=== PATIENT | female | born 1945 | race Caucasian/White ===

== ENCOUNTER 2017-10-04 00:33 | Observation (INO) ==
--- NOTE | 2017-10-04 00:47 | Emergency Department Note ---
Disposition Clinical Impression: UTI (urinary tract infection), CHF (congestive heart failure), Altered mental status Disposition: Admitted As Inpatient Condition: Good Altered Mental Status HPI - General Chief Complaint: ED Altered Mental Status Stated Complaint: Altered mental status, current UTI on Bactrim Time Seen by Provider: 10/04/17 00:35 Source: family Mode of arrival: EMS Limitations: altered mental status Nursing Notes Reviewed: Yes Vital Signs Reviewed: Yes - History of Present Illness HPI Narrative: PT has a known UTI and was sent here for worsening metal status. Family did not accompany the patient but over the phone they say she is more confused. MD complaint: altered mental status Onset (ago): day(s) (a few days) Pain Severity: none Pain Scale: 0 Associated symptoms: Reports: denies other symptoms - Related Data Home Medications Medication Instructions Recorded Confirmed Furosemide [Lasix] 60 mg PO BID 04/06/15 10/04/17 Levothyroxine [Synthroid] 175 mcg PO QAM 04/06/15 10/04/17 Metoprolol [Lopressor] 25 mg PO QAM 04/06/15 10/04/17 SitaGLIPtin [Januvia] 100 mg PO QPM 04/06/15 10/04/17 Oxygen 1 each IH AD 04/09/15 11/20/15 Albuterol Neb [Proventil Neb] 2.5 mg IH TID PRN 05/08/15 10/04/17 Potassium Chloride 20 meq PO DAILY PRN 05/08/15 10/04/17 Simvastatin [Zocor] 20 mg PO QPM 05/08/15 10/04/17 Acetaminophen [Arthritis Pain 650 mg PO Q4H PRN 10/04/17 10/04/17 Relief] Allopurinol [Zyloprim 100 MG] 100 mg PO DAILY 10/04/17 10/04/17 Aspirin [Lo-Dose Aspirin EC] 81 mg PO QAM 10/04/17 10/04/17 Benzocaine [Anbesol] 12 ml MM QID PRN 10/04/17 10/04/17 Benzonatate [Tessalon] 100 mg PO TID 10/04/17 10/04/17 Bisacodyl [Dulcolax] 10 mg RC DAILY PRN 10/04/17 10/04/17 Buspirone HCl [Buspar] 7.5 mg PO BID PRN 10/04/17 10/04/17 Chlorpheniramine/Dextromethorp 1 each PO Q4H PRN 10/04/17 10/04/17 [Coricidin Hbp Cough & Cold Tab] Citalopram [CeleXA] 10 mg PO DAILY 10/04/17 10/04/17 Diclofenac Sodium [Voltaren] 100 gm TP QID PRN 10/04/17 10/04/17 Famotidine [Pepcid] 20 mg PO BID 10/04/17 10/04/17 HYDROcodone/Acet 5/325 mg [[place] 1 tab PO Q6H PRN 10/04/17 10/04/17 5-325 mg] Lactobacillus Combination No.8 1 cap PO BID 10/04/17 10/04/17 [Adult Probiotic] Loperamide HCl [Imodium A-D] 2 mg PO PRN PRN 10/04/17 10/04/17 Multivitamin [Multivitamins] 1 each PO QAM 10/04/17 10/04/17 Ondansetron HCl [Zofran] 4 mg PO Q6H PRN 10/04/17 10/04/17 Phenylephrine HCl/Prometh HCl 5 ml PO Q6H PRN 10/04/17 10/04/17 [Promethazine Vc Syrup] Polyethylene Glycol 3350 [MiraLAX] 17 gm PO DAILY 10/04/17 10/04/17 Polyvinyl Alcohol [Artificial 15 ml OP Q4H PRN 10/04/17 10/04/17 Tears] Spironolactone [Aldactone] 25 mg PO QMWF 10/04/17 10/04/17 Sulfamethoxazole/Trimeth DS 1 each PO BID 10/04/17 10/04/17 [Bactrim DS] Warfarin [Coumadin] 2 mg PO DAILY 10/04/17 10/04/17 Previous Rx's Medication Instructions Recorded Albuterol Sulfate [Albuterol 1 puff IH Q4HR PRN #2 inhaler 09/06/15 Inhaler] Budesonide/Formoterol 160/4.5 1 puff IH BIDR #2 hfa.aer.ad 09/06/15 [Symbicort 160/4.5] Allergies Allergy/AdvReac Type Severity Reaction Status Date / Time atorvastatin [From Lipitor] Allergy Muscle Pain Verified 10/04/17 01:36 fentanyl Allergy Hallucinati Verified 10/04/17 01:36 ng steroids Allergy Hallucinati Uncoded 10/04/17 01:36 ng All systems ED: reviewed and negative except as stated. Review of Systems: As Per HPI Constitutional: Denies: fever, chills, weakness, weight change Eyes: Denies: eye pain, eye discharge, vision change ENT ED: Denies: ear pain, throat pain, dental pain, hearing loss, epistaxis, congestion, dysphagia Cardiovascular: Denies: chest pain, palpitations, dyspnea on exertion, edema, syncope Respiratory: Denies: cough, dyspnea, wheezes, hemoptysis, stridor Gastrointestinal: Denies: abdominal pain, nausea, vomiting, diarrhea, constipation, hematemesis, melena, hematochezia Genitourinary: Denies: dysuria, frequency, hematuria, discharge Musculoskeletal: Denies: back pain, neck pain, arthralgia, myalgia Integumentary: Denies: rash, abrasion, lesions Neurological: Denies: headache, weakness, numbness, paresthesias, confusion, abnormal gait, vertigo Psychiatric: Denies: anxiety, depression, suicidal thoughts, homicidal thoughts , auditory hallucinations, visual hallucinations Endocrine: Denies: fatigue Hematological/Lymphatic: Denies: easy bleeding, easy bruising Allergic/Immunologic: Denies: facial swelling, urticaria Past Medical History - Past Medical History Attestation: Yes The following information was validated with the patient. Source: old records reviewed Medical history: Reports: arthritis, CHF, COPD, coronary artery disease, diabetes, hypertension, myocardial infarction Surgical history: Reports: breast surgery, cholecystectomy, pacemaker/AICD Psychiatric history: Reports: anxiety [employer] history: Reports: other - Social History Smoking Status: Former smoker Smokeless Tobacco Status: No Alcohol use: Reports: none Drug use: Reports: none Physical Exam - General Limitations: no limitations General appearance: alert, in no apparent distress - Head Head exam: atraumatic, normocephalic, normal inspection - Eye Eye exam: Present: normal appearance, PERRL, EOMI - ENT ENT exam: normal exam, normal oropharynx, mucous membranes moist - Neck Neck exam: Present: normal inspection, full ROM, trachea midline - Chest Chest inspection: Present: normal inspection, symmetric chest wall rise - Respiratory Respiratory exam: Present: normal lung sounds bilaterally - Cardiovascular Cardiovascular exam: Present: regular rate, normal rhythm, normal heart sounds - Abdominal Exam Abdominal exam: Present: soft, Non-Tender, normal bowel sounds - Extremities Exam Extremities exam: Present: normal inspection - Back Exam Back exam: Present: normal inspection - Neurological Exam Neurological exam: Present: alert, oriented X3 - Psychiatric Psychiatric exam: Present: normal affect, normal mood - Skin Skin exam: Present: warm, dry, intact Course Vital Signs Temperature 97.4 F L 10/04/17 00:35 Pulse Rate 62 10/04/17 00:35 Respiratory Rate 18 10/04/17 00:35 Blood Pressure 155/47 10/04/17 00:35 O2 Sat by Pulse Oximetry 96 10/04/17 00:35 Temperature 98.3 F 10/04/17 07:06 Pulse Rate 62 10/04/17 07:06 Respiratory Rate 20 10/04/17 07:06 Blood Pressure 106/37 10/04/17 07:06 O2 Sat by Pulse Oximetry 95 10/04/17 07:06 Oxygen Delivery Oxygen Delivery Nasal Cannula Altered Mental Status - Lab Data Lab results reviewed: Yes I reviewed the patient's lab results. Result diagrams: 10/04/17 01:13 10/04/17 01:13 Lab Results 10/04/17 10/04/17 10/04/17 Range/Units 01:05 01:13 01:13 WBC 3.8 L D (4.3-11.1) K/mcL RBC 4.08 (3.82-4.97) M/mcL Hgb 13.1 (11.5-15.4) g/dL Hct 40.6 (35.3-44.9) % MCV 99.5 (83.0-100.0) fL MCH 32.1 (28.0-33.3) pg MCHC 32.3 (31.6-35.5) g/dL RDW 17.7 H (11.5-14.5) % Plt Count 97 L (140-400) K/mcL MPV 10.7 (9.4-12.4) fL Immature Gran % 0.5 (0-4) % Seg Neutrophils % 73.7 % Lymphocytes % 11.6 % Monocytes % 11.6 % Eosinophils % 2.1 % Basophils % 0.5 % Neutrophils # 2.8 (1.6-8.9) K/mcL Lymphocytes # 0.4 L (0.6-4.6) K/mcL Monocytes # 0.4 (0.0-1.3) K/mcL Eosinophils # 0.1 (0.0-0.6) K/mcL Basophils # 0.0 (0.0-0.2) K/mcL PT (9.4-12.1) Seconds INR APTT (26.0-36.0) Seconds Sodium 139 (136-145) mEq/L Potassium 3.7 (3.5-5.1) mEq/L Chloride 99 (98-107) mEq/L Carbon Dioxide 32 H (23-29) mEq/L BUN 21 (8-23) mg/dL Creatinine 1.29 H (0.60-1.20) mg/dL Est GFR ( Amer) 49 L (> 60) Est GFR (Non-Af Amer) 41 L (> 60) BUN/Creatinine Ratio 16 (6-26) Glucose 127 H (70-105) mg/dL Calculated Osmolality 293 (280-300) Lactic Acid (0.5-2.2) mmol/L Calcium 9.1 (8.6-10.3) mg/dL Total Bilirubin 1.1 H (0.3-1.0) mg/dL AST 30 (13-39) Units/L ALT 12 (7-52) Units/L Alkaline Phosphatase 81 (34-104) Units/L Troponin I (< 0.04) ng/mL B-Natriuretic Peptide (Less than 100) pg/mL Serum Total Protein 6.0 L (6.4-8.9) g/dL Albumin 3.5 (3.5-5.7) g/dL Globulin 2.5 (2.4-3.5) g/dL Albumin/Globulin Ratio 1.4 (1.1-2.2) Urine Color Dark Yellow (Yellow) Urine Clarity Cloudy A (Clear) Urine pH 5.5 (5.0-8.0) pH Units Ur Specific [place] 1.025 (1.010-1.025) Urine Protein Negative (Neg-Trace) mg/dL Urine Glucose (UA) Normal (Normal) mg/dL Urine Ketones Negative (Negative) mg/dL Urine Blood Large H (Negative) Urine Nitrite Negative (Negative) Urine Bilirubin Small H (Negative) Urine Urobilinogen Normal (Normal) mg/dL Ur Leukocyte Esterase Negative (Negative) Urine Microscopic RBC 30-50 H (0-3) per hpf Urine Microscopic WBC 0-3 (0-3) per hpf Ur Squamous Epith Cells Few (None-Few) per lpf Uric Acid Crystals Present Amorphous Sediment Moderate H (Few) Urine Bacteria Many H (None-Few) per hpf Hyaline Casts Moderate H (None-Few) per lpf Granular Casts Few H (None Seen) per lpf Urine Mucus Few (Few) Ur Culture Indicated? NO (NO) Urine Opiates Screen (Rcjfni=445) ng/mL Ur Oxycodone Screen (Cutoff= 100) ng/mL Ur Barbiturates Screen (Ltfzpq=117) ng/mL Ur Phencyclidine Scrn (Cutoff=25) ng/mL Ur Amphetamines Screen (Ygtmxm=9466) ng/mL U Benzodiazepines Scrn (Guniey=675) ng/mL Urine Cocaine Screen (Cutoff= 300) ng/mL U Marijuana (THC) Screen (Cutoff = 50) ng/mL 10/04/17 10/04/17 10/04/17 Range/Units 01:13 01:13 01:13 WBC (4.3-11.1) K/mcL RBC (3.82-4.97) M/mcL Hgb (11.5-15.4) g/dL Hct (35.3-44.9) % MCV (83.0-100.0) fL MCH (28.0-33.3) pg MCHC (31.6-35.5) g/dL RDW (11.5-14.5) % Plt Count (140-400) K/mcL MPV (9.4-12.4) fL Immature Gran % (0-4) % Seg Neutrophils % % Lymphocytes % % Monocytes % % Eosinophils % % Basophils % % Neutrophils # (1.6-8.9) K/mcL Lymphocytes # (0.6-4.6) K/mcL Monocytes # (0.0-1.3) K/mcL Eosinophils # (0.0-0.6) K/mcL Basophils # (0.0-0.2) K/mcL PT 42.2 H (9.4-12.1) Seconds INR 3.8 APTT 41.6 H (26.0-36.0) Seconds Sodium (136-145) mEq/L Potassium (3.5-5.1) mEq/L Chloride (98-107) mEq/L Carbon Dioxide (23-29) mEq/L BUN (8-23) mg/dL Creatinine (0.60-1.20) mg/dL Est GFR ( Amer) (> 60) Est GFR (Non-Af Amer) (> 60) BUN/Creatinine Ratio (6-26) Glucose (70-105) mg/dL Calculated Osmolality (280-300) Lactic Acid 1.0 (0.5-2.2) mmol/L Calcium (8.6-10.3) mg/dL Total Bilirubin (0.3-1.0) mg/dL AST (13-39) Units/L ALT (7-52) Units/L Alkaline Phosphatase (34-104) Units/L Troponin I 0.05 H* (< 0.04) ng/mL B-Natriuretic Peptide (Less than 100) pg/mL Serum Total Protein (6.4-8.9) g/dL Albumin (3.5-5.7) g/dL Globulin (2.4-3.5) g/dL Albumin/Globulin Ratio (1.1-2.2) Urine Color (Yellow) Urine Clarity (Clear) Urine pH (5.0-8.0) pH Units Ur Specific [place] (1.010-1.025) Urine Protein (Neg-Trace) mg/dL Urine Glucose (UA) (Normal) mg/dL Urine Ketones (Negative) mg/dL Urine Blood (Negative) Urine Nitrite (Negative) Urine Bilirubin (Negative) Urine Urobilinogen (Normal) mg/dL Ur Leukocyte Esterase (Negative) Urine Microscopic RBC (0-3) per hpf Urine Microscopic WBC (0-3) per hpf Ur Squamous Epith Cells (None-Few) per lpf Uric Acid Crystals Amorphous Sediment (Few) Urine Bacteria (None-Few) per hpf Hyaline Casts (None-Few) per lpf Granular Casts (None Seen) per lpf Urine Mucus (Few) Ur Culture Indicated? (NO) Urine Opiates Screen (Rtlelv=712) ng/mL Ur Oxycodone Screen (Cutoff= 100) ng/mL Ur Barbiturates Screen (Ewabiy=053) ng/mL Ur Phencyclidine Scrn (Cutoff=25) ng/mL Ur Amphetamines Screen (Focppq=4131) ng/mL U Benzodiazepines Scrn (Blbcvt=404) ng/mL Urine Cocaine Screen (Cutoff= 300) ng/mL U Marijuana (THC) Screen (Cutoff = 50) ng/mL 10/04/17 10/04/17 10/04/17 Range/Units 01:13 01:32 03:00 WBC (4.3-11.1) K/mcL RBC (3.82-4.97) M/mcL Hgb (11.5-15.4) g/dL Hct (35.3-44.9) % MCV (83.0-100.0) fL MCH (28.0-33.3) pg MCHC (31.6-35.5) g/dL RDW (11.5-14.5) % Plt Count (140-400) K/mcL MPV (9.4-12.4) fL Immature Gran % (0-4) % Seg Neutrophils % % Lymphocytes % % Monocytes % % Eosinophils % % Basophils % % Neutrophils # (1.6-8.9) K/mcL Lymphocytes # (0.6-4.6) K/mcL Monocytes # (0.0-1.3) K/mcL Eosinophils # (0.0-0.6) K/mcL Basophils # (0.0-0.2) K/mcL PT (9.4-12.1) Seconds INR APTT (26.0-36.0) Seconds Sodium (136-145) mEq/L Potassium (3.5-5.1) mEq/L Chloride (98-107) mEq/L Carbon Dioxide (23-29) mEq/L BUN (8-23) mg/dL Creatinine (0.60-1.20) mg/dL Est GFR ( Amer) (> 60) Est GFR (Non-Af Amer) (> 60) BUN/Creatinine Ratio (6-26) Glucose (70-105) mg/dL Calculated Osmolality (280-300) Lactic Acid (0.5-2.2) mmol/L Calcium (8.6-10.3) mg/dL Total Bilirubin (0.3-1.0) mg/dL AST (13-39) Units/L ALT (7-52) Units/L Alkaline Phosphatase (34-104) Units/L Troponin I 0.04 H* (< 0.04) ng/mL B-Natriuretic Peptide 290 H (Less than 100) pg/mL Serum Total Protein (6.4-8.9) g/dL Albumin (3.5-5.7) g/dL Globulin (2.4-3.5) g/dL Albumin/Globulin Ratio (1.1-2.2) Urine Color (Yellow) Urine Clarity (Clear) Urine pH (5.0-8.0) pH Units Ur Specific [place] (1.010-1.025) Urine Protein (Neg-Trace) mg/dL Urine Glucose (UA) (Normal) mg/dL Urine Ketones (Negative) mg/dL Urine Blood (Negative) Urine Nitrite (Negative) Urine Bilirubin (Negative) Urine Urobilinogen (Normal) mg/dL Ur Leukocyte Esterase (Negative) Urine Microscopic RBC (0-3) per hpf Urine Microscopic WBC (0-3) per hpf Ur Squamous Epith Cells (None-Few) per lpf Uric Acid Crystals Amorphous Sediment (Few) Urine Bacteria (None-Few) per hpf Hyaline Casts (None-Few) per lpf Granular Casts (None Seen) per lpf Urine Mucus (Few) Ur Culture Indicated? (NO) Urine Opiates Screen Negative ([place]=379) ng/mL Ur Oxycodone Screen Negative (Cutoff= 100) ng/mL Ur Barbiturates Screen Negative (Yxceaf=082) ng/mL Ur Phencyclidine Scrn Negative (Cutoff=25) ng/mL Ur Amphetamines Screen Negative (Kirjrx=8226) ng/mL U Benzodiazepines Scrn Negative (Xqafae=491) ng/mL Urine Cocaine Screen Negative (Cutoff= 300) ng/mL U Marijuana (THC) Screen Negative (Cutoff = 50) ng/mL - Radiology Data Radiology results reviewed: Yes I reviewed the patient's radiology results. - EKG Data EKG attestation: Yes I reviewed and interpreted this EKG. EKG results narrative: EKG shows an electronically paced rhythm. Rate of 65bpm. axis -77 QRS duration 189ms. TPA Checklist - LKW: 3-4.5 hrs Add. Warnings/Precautions Patient/family understanding: The patient/family members have been counseled and understood the risk, benefit , and alternatives of treatment.
[2017-10-04] MEDS ORDERED: 0.9 % Sodium Chloride 1,000 ML IVC SCH ×2 (01:00→05:13)
[2017-10-04 01:30] LABS: INR 3.8; Prothrombin Time 42.2 Seconds (9.4-12.1)
[2017-10-04 01:31] LABS: Basophils % 0.5 %; Eosinophils # 0.1 K/mcL (0.0-0.6); Eosinophils % 2.1 %; Hematocrit 40.6 % (35.3-44.9); Hemoglobin 13.1 g/dL (11.5-15.4); Immature Granulocytes % 0.5 % (0-4); Lymphocytes # 0.4 K/mcL (0.6-4.6); Lymphocytes % 11.6 %; Mean Corpuscular HGB Conc 32.3 g/dL (31.6-35.5); Mean Corpuscular Hemoglobin 32.1 pg (28.0-33.3); Mean Corpuscular Volume 99.5 fL (83.0-100.0); Mean Platelet Volume 10.7 fL (9.4-12.4); Monocytes # 0.4 K/mcL (0.0-1.3); Monocytes % 11.6 %; Neutrophils # 2.8 K/mcL (1.6-8.9); Red Blood Count 4.08 M/mcL (3.82-4.97); Red Cell Distribution Width 17.7 % (11.5-14.5); Segmented Neutrophils % 73.7 %
[2017-10-04 01:33] LABS: Activated Partial Thrombo Time 41.6 Seconds (26.0-36.0)
[2017-10-04 01:35] LABS: Platelet Count 97 K/mcL (140-400)
[2017-10-04 01:40] LABS: Bilirubin,Urine Small (Negative); Blood,Urine Large (Negative); Clarity,Urine Cloudy (Clear); Color,Urine Dark Yellow (Yellow); Glucose,Urine (UA) Normal (Normal); Ketones,Urine Negative (Negative); Leukocyte Esterase,Urine Negative (Negative); Nitrite,Urine Negative (Negative); PH,Urine 5.5 pH Units (5.0-8.0); Protein,Urine Negative (Neg-Trace); Specific Gravity,Urine 1.025 (1.010-1.025); Urobilinogen,Urine Normal (Normal)
[2017-10-04 01:43] LABS: Albumin 3.5 g/dL (3.5-5.7); Albumin/Globulin Ratio 1.4 (1.1-2.2); Bilirubin,Total 1.1 mg/dL (0.3-1.0); Calcium 9.1 mg/dL (8.6-10.3); Globulin 2.5 g/dL (2.4-3.5); Potassium 3.7 mEq/L (3.5-5.1)
[2017-10-04 01:55] LABS: Bacteria,Urine Many per hpf (None-Few); Hyaline Casts,Urine Moderate per lpf (None-Few); Squamous Epithelial Cell,Urine Few per lpf (None-Few)
[2017-10-04 01:56] LABS: Granular Casts,Urine Few per lpf (None Seen); RBC,Urine 30-50 per hpf (0-3); WBC,Urine 0-3 per hpf (0-3)
[2017-10-04 01:57] LABS: Mucus,Urine Few (Few); Uric Acid Crystals,Urine Present
[2017-10-04 01:58] LABS: Amorphous Sediment,Urine Moderate (Few)
[2017-10-04 02:00] LABS: Amphetamine Screen,Urine Negative ng/mL (Cutoff=1000); Barbiturate Screen,Urine Negative ng/mL (Cutoff=200); Benzodiazepines Screen,Urine Negative ng/mL (Cutoff=200); Cannabinoid Screen,Urine Negative ng/mL (Cutoff = 50); Cocaine Screen,Urine Negative ng/mL (Cutoff= 300); Opiate Screen,Urine Negative ng/mL (Cutoff=300); Phencyclidine Screen,Urine Negative ng/mL (Cutoff=25)
[2017-10-04] MEDS ORDERED: CEFTRIAXONE IVPB ONE (02:00)
[2017-10-04] MEDS ORDERED: D5 IVPB ONE (02:00)
[2017-10-04] MEDS ORDERED: WATER IVPB ONE (02:00)
[2017-10-04] MEDS ORDERED: Aspirin 81 MG TAB.CHEW PO STA (03:38)
[2017-10-04] MEDS ORDERED: Furosemide 40 MG/4 ML VIAL IVP ONE (03:38)
[2017-10-04] MEDS ORDERED: Albuterol 2.5 MG/3 ML NEBULIZER IH PRN (05:13)
[2017-10-04] MEDS ORDERED: DEXTROMETHORPHAN PO PRN (05:13)
[2017-10-04] MEDS ORDERED: Bisacodyl 10 MG RECTAL SUPPOSITORY RC PRN (05:13)
[2017-10-04] MEDS ORDERED: Artificial Tears SOLN 15 ML BOTTLE OP PRN (05:13)
[2017-10-04] MEDS ORDERED: BENZOCAINE TP PRN (05:13)
[2017-10-04] MEDS ORDERED: Acetaminophen 325 MG TABLET PO PRN (05:13)
[2017-10-04] MEDS ORDERED: PROMETHAZINE VC PO PRN (05:13)
[2017-10-04] MEDS ORDERED: (Diclofenac Sodium [Voltaren] 100 GM) TP PRN (05:13)
[2017-10-04] MEDS ORDERED: Naloxone 0.4 MG/ML INJ IVP PRN (05:13)
[2017-10-04] MEDS ORDERED: NON-FORMULARY MEDICATION 1 EACH EACH (Oxygen [Oxygen] 1 EACH) IH SCH (05:13)
[2017-10-04] MEDS ORDERED: GUAIFENESIN PO PRN (05:13)
[2017-10-04] MEDS: Benzonatate 100 MG CAPSULE PO SCH ×2 (08:44→14:57)
[2017-10-04] MEDS ORDERED: Furosemide 20 MG TABLET PO SCH (09:00)
[2017-10-04] MEDS ORDERED: Aspirin Enteric Coated 81 MG Tablet PO SCH (09:00)
[2017-10-04] MEDS ORDERED: Famotidine 20 MG TABLET PO SCH (09:00)
[2017-10-04] MEDS ORDERED: Sulfamethoxazole/Trimeth DS 1 EACH TABLET PO SCH (09:00)
[2017-10-04] MEDS ORDERED: Budesonide/Formoterol 160/4.5 1 PUFF INH IH SCH (10:00)
[2017-10-04 12:01] VITALS: BP 136/66
--- NOTE | 2017-10-04 14:29 | Internal Med History&Physical ---
Date of Encounter: 10/04/17 Time of Encounter: 13:45 Assessment and Plan (1) Altered mental status Current visit: Yes Status: Acute Now resolved. Etiology not certain. Qualifiers: Altered mental status type: unspecified Qualified Code(s): R41.82 - Altered mental status, unspecified (2) Congestive heart failure Current visit: Yes Status: Chronic Continue Lasix and Aldactone. Will change Lopressor to Toprol-XL for 24-hour coverage. Will add Imdur. Qualifiers: Heart failure type: diastolic Heart failure chronicity: chronic Qualified Code(s): I50.32 - Chronic diastolic (congestive) heart failure (3) Atrial fibrillation Current visit: No Status: Chronic She reports she has difficult maintaining therapeutic INR. INR record reviewed in lab archives. Will discontinue Coumadin and change to Xarelto. Qualifiers: Atrial fibrillation type: chronic Qualified Code(s): I48.2 - Chronic atrial fibrillation (4) Hypothyroidism Current visit: No Status: Chronic TSH was normal at 3.921 on 05/27/2017. Continue present dose Synthroid. Qualifiers: Hypothyroidism type: acquired Qualified Code(s): E03.9 - Hypothyroidism, unspecified (5) Acute kidney injury Current visit: No Status: Acute Creatinine was 0.90 on 09/28/2017. This can be monitored at the SNF. (6) CKD (chronic kidney disease) stage 3, GFR 30-59 ml/min Current visit: No Status: Chronic As above Internal Medicine - H&P: HPI Chief complaint: Confusion Admitted From: Emergency Dept Plans for Post Hospital Care: Home History of present illness: Ms. De is a 72 year old female who was sent to the emergency room from [facility] after it was felt she was more confused. She was evaluated in emergency room and felt to have UTI and heart failure. She was admitted to [facility] floor for ongoing care needs. She states she feels significantly improved now. Her daughter agrees she is improved but perhaps not quite back to baseline. Her neurologic history is negative for large distention strokes or seizures. She has been diagnosed with multiple UTIs in the past. history is pertinent otherwise for chronic kidney disease. 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 She was found to have hematuria in the emergency room but 0-3 WBCs and negative leukocyte esterase. Past Med Surg Social Fam HX - Past Medical History Medical history: arthritis, CHF, COPD, coronary artery disease, diabetes, hypertension, myocardial infarction Psychiatric history: anxiety - Past Surgical History Surgical History: breast surgery, cholecystectomy, pacemaker/AICD - Social History Smoking Status: Former smoker Smokeless Tobacco Status: No Alcohol use: none Drug use: none - Family History Brother Adopted: No Family Member Ethnicity: Non- Living Status: Hx Family Cardiac Disorders: Yes Hx Family Respiratory Disorders: No Hx Family Cancer: Yes (liver) Hx Family GI Disorders: Yes (stomach lined with rubber tubing) Hx Family Endocrine Disorder: No Hx Family Neuromuscular Disorders: No Hx Family Neurologic Disorders: No Hx Family HEENT Disorders: No Hx Family Autoimmune Disorders: No Mother Adopted: No Family Member Ethnicity: Non- Living Status: Hx Family Cardiac Disorders: Yes Hx Family Respiratory Disorders: No Hx Family Cancer: No Hx Family GI Disorders: No Hx Family Endocrine Disorder: No Hx Family Neuromuscular Disorders: No Hx Family Neurologic Disorders: No Hx Family HEENT Disorders: No Hx Family Autoimmune Disorders: No Father Adopted: No Family Member Ethnicity: Non- Living Status: Hx Family Cardiac Disorders: No Hx Family Respiratory Disorders: No Hx Family Cancer: Yes Hx Family GI Disorders: No Hx Family Endocrine Disorder: No Hx Family Neuromuscular Disorders: No Hx Family Neurologic Disorders: No Hx Family HEENT Disorders: No Hx Family Autoimmune Disorders: No Sister Adopted: No Family Member Ethnicity: Non- Living Status: Still Living Hx Family Cardiac Disorders: No Hx Family Respiratory Disorders: No Hx Family Cancer: Yes (Stomach and pancreas) Hx Family GI Disorders: No Hx Family Endocrine Disorder: No Hx Family Neuromuscular Disorders: No Hx Family Neurologic Disorders: No Hx Family HEENT Disorders: No Hx Family Autoimmune Disorders: No Internal Medicine - H&P: Meds Furosemide [Lasix] 60 mg PO BID 04/06/15 [History] Levothyroxine [Synthroid] 175 mcg PO QAM 04/06/15 [History] Metoprolol [Lopressor] 25 mg PO QAM 04/06/15 [History] SitaGLIPtin [Januvia] 100 mg PO QPM 04/06/15 [History] Oxygen 1 each IH AD 04/09/15 [History] Albuterol Neb [Proventil Neb] 2.5 mg IH TID PRN 05/08/15 [History] Potassium Chloride 20 meq PO DAILY PRN 05/08/15 [History] Simvastatin [Zocor] 20 mg PO QPM 05/08/15 [History] Albuterol Sulfate [Albuterol Inhaler] 1 puff IH Q4HR PRN #2 inhaler 09/06/15 [Rx ] Budesonide/Formoterol 160/4.5 [Symbicort 160/4.5] 1 puff IH BIDR #2 hfa.aer.ad 09/06/15 [Rx] Acetaminophen [Arthritis Pain Relief] 650 mg PO Q4H PRN 10/04/17 [History] Allopurinol [Zyloprim 100 MG] 100 mg PO DAILY 10/04/17 [History] Aspirin [Lo-Dose Aspirin EC] 81 mg PO QAM 10/04/17 [History] Benzocaine [Anbesol] 12 ml MM QID PRN 10/04/17 [History] Benzonatate [Tessalon] 100 mg PO TID 10/04/17 [History] Bisacodyl [Dulcolax] 10 mg RC DAILY PRN 10/04/17 [History] Buspirone HCl [Buspar] 7.5 mg PO BID PRN 10/04/17 [History] Chlorpheniramine/Dextromethorp [Coricidin Hbp Cough & Cold Tab] 1 each PO Q4H PRN 10/04/17 [History] Citalopram [CeleXA] 10 mg PO DAILY 10/04/17 [History] Diclofenac Sodium [Voltaren] 100 gm TP QID PRN 10/04/17 [History] Famotidine [Pepcid] 20 mg PO BID 10/04/17 [History] HYDROcodone/Acet 5/325 mg [[place] 5-325 mg] 1 tab PO Q6H PRN 10/04/17 [History] Lactobacillus Combination No.8 [Adult Probiotic] 1 cap PO BID 10/04/17 [History] Loperamide HCl [Imodium A-D] 2 mg PO PRN PRN 10/04/17 [History] Multivitamin [Multivitamins] 1 each PO QAM 10/04/17 [History] Ondansetron HCl [Zofran] 4 mg PO Q6H PRN 10/04/17 [History] Phenylephrine HCl/Prometh HCl [Promethazine Vc Syrup] 5 ml PO Q6H PRN 10/04/17 [ History] Polyethylene Glycol 3350 [MiraLAX] 17 gm PO DAILY 10/04/17 [History] Polyvinyl Alcohol [Artificial Tears] 15 ml OP Q4H PRN 10/04/17 [History] Spironolactone [Aldactone] 25 mg PO QMWF 10/04/17 [History] Sulfamethoxazole/Trimeth DS [Bactrim DS] 1 each PO BID 10/04/17 [History] Warfarin [Coumadin] 2 mg PO DAILY 10/04/17 [History] 3 Allergy/AdvReac Type Severity Reaction Status Date / Time atorvastatin [From Lipitor] Allergy Muscle Pain Verified 10/04/17 01:36 fentanyl Allergy Hallucinati Verified 10/04/17 01:36 ng steroids Allergy Hallucinati Uncoded 10/04/17 01:36 ng All Systems PM: A 10-system review of systems was performed and is negative for pertinent findings except as documented above in the HPI. Review of systems: Gen.: Her weight has decreased from 163.339 kg on 12/04/2015 to 145.15 kg on admission now. Cardiovascular: She has history of hypertension and known ASHD status post SD 2. She has chronic atrial fibrillation and is presently on Coumadin. Pro times have been frequently fluctuating. She has ASCVD with left carotid stent in place. She had sick sinus syndrome with pacemaker placement 2013. She had leg DVT January 2014. She has been diagnosed with heart failure. An echocardiogram 08/07/2017 showed technically suboptimal study due to poor echocardiogram windows. The LVEF was 60%. There was indeterminant diastolic function due to A. fib. There was no significant valvular abnormalities seen. Interventricular septum and posterior wall thickness measurements were elevated at 1.30 cm each. Respiratory: She smoked from age [age] up to 1 pack per day. She has a diagnosis of COPD and wears oxygen 09/03. She has VERONICA. GI: She has had cholecystectomy. She has GERD. She denies other disorders of her liver or exocrine pancreas : As per history of present illness Neurologic: As per history of present illness Endocrine: She was diagnosed with DM2 approximately 2001. She has hypothyroidism but denies hyperlipidemia Hematology/oncology: She has had 2 episodes of uterine cancer without hysterectomy. She had left breast lumpectomy for cancer and is presumed cancer free. She had anemia in the past but now resolved. Psychiatric: She has anxiety and depression but denies other mental health issues Muscle skeletal: She has history of gout and DJD. - Constitutional Vitals: Temp Pulse Resp BP Pulse Ox 98.4 F 63 20 136/66 92 10/04/17 11:42 10/04/17 11:42 10/04/17 11:42 10/04/17 11:42 10/04/17 11:42 Exam: Her: She is a well-developed obese female lying in bed who appears in no acute distress. HEENT: Head is atraumatic, normocephalic. Eyes: EOMI. There is no scleral icterus. Mouth: Mucosa is moist. Neck: Supple and nontender. There is no thyromegaly or adenopathy noted. Heart: Regular(pacer). No murmurs or gallops are heard. Lungs: No wheezes or crackles are heard. Abdomen: She has a large abdomen. It is nontender to palpation. Organ size cannot be determined. Extremities: She has venous stasis dermatitis of her lower anterior shins bilaterally. There is trace to 1+ edema of the dorsal feet and lower anterior shins. Dorsalis pedis and posterior tibial pulses are nonpalpable. She has mild DJD changes of her hands. Neurologic: Mental status: She is talkative and a good historian. Cranial nerves: Smile is symmetric. Forehead wrinkles bilaterally. Tongue protrudes midline. EOMI. Motor: There is no pronator drift. Cerebellar: Finger to nose is intact bilaterally. Skin: Warm and dry Internal Med - H&P Results - Labs CBC & Chem 7: 10/04/17 01:13 10/04/17 01:13 Labs: Cardiac Enzymes 10/04/17 10/04/17 Range/Units 07:48 13:47 Troponin I 0.04 H* 0.03 (< 0.04) ng/mL
--- NOTE | 2017-10-04 14:56 | Discharge Summary ---
Date of Encounter: 10/04/17 Time of Encounter: 13:45 - Discharge Diagnosis (1) Altered mental status Priority: Primary Status: Resolved Qualifiers: Altered mental status type: unspecified Qualified Code(s): R41.82 - Altered mental status, unspecified (2) Congestive heart failure Priority: Secondary Status: Chronic Qualifiers: Heart failure type: diastolic Heart failure chronicity: chronic Qualified Code(s): I50.32 - Chronic diastolic (congestive) heart failure (3) Atrial fibrillation Priority: Secondary Status: Chronic Qualifiers: Atrial fibrillation type: chronic Qualified Code(s): I48.2 - Chronic atrial fibrillation (4) Hypothyroidism Priority: Secondary Status: Chronic Qualifiers: Hypothyroidism type: acquired Qualified Code(s): E03.9 - Hypothyroidism, unspecified (5) Acute kidney injury Priority: Secondary Status: Acute (6) CKD (chronic kidney disease) stage 3, GFR 30-59 ml/min Priority: Secondary Status: Chronic - Discharge Medications Prescriptions: Isosorbide MONOnitrate (24 HR) [Imdur] 30 mg PO DAILY 365 Days tab.er.24h Metoprolol XL (24 HR) Succ [Toprol XL] 25 mg PO DAILY 365 Days tab.er.24h Rivaroxaban [Xarelto] 15 mg PO 1700 365 Days tablet Home Medications: Furosemide [Lasix] 60 mg PO BID 04/06/15 [History] Levothyroxine [Synthroid] 175 mcg PO QAM 04/06/15 [History] SitaGLIPtin [Januvia] 100 mg PO QPM 04/06/15 [History] Oxygen 1 each IH AD 04/09/15 [History] Albuterol Neb [Proventil Neb] 2.5 mg IH TID PRN 05/08/15 [History] Potassium Chloride 20 meq PO DAILY PRN 05/08/15 [History] Simvastatin [Zocor] 20 mg PO QPM 05/08/15 [History] Albuterol Sulfate [Albuterol Inhaler] 1 puff IH Q4HR PRN #2 inhaler 09/06/15 [Rx ] Budesonide/Formoterol 160/4.5 [Symbicort 160/4.5] 1 puff IH BIDR #2 hfa.aer.ad 09/06/15 [Rx] Acetaminophen [Arthritis Pain Relief] 650 mg PO Q4H PRN 10/04/17 [History] Allopurinol [Zyloprim 100 MG] 100 mg PO DAILY 10/04/17 [History] Aspirin [Lo-Dose Aspirin EC] 81 mg PO QAM 10/04/17 [History] Benzocaine [Anbesol] 12 ml MM QID PRN 10/04/17 [History] Bisacodyl [Dulcolax] 10 mg RC DAILY PRN 10/04/17 [History] Buspirone HCl [Buspar] 7.5 mg PO BID PRN 10/04/17 [History] Chlorpheniramine/Dextromethorp [Coricidin Hbp Cough & Cold Tab] 1 each PO Q4H PRN 10/04/17 [History] Citalopram [CeleXA] 10 mg PO DAILY 10/04/17 [History] Diclofenac Sodium [Voltaren] 100 gm TP QID PRN 10/04/17 [History] Famotidine [Pepcid] 20 mg PO BID PRN #0 10/04/17 [Rx] HYDROcodone/Acet 5/325 mg [[place] 5-325 mg] 1 tab PO Q6H PRN 10/04/17 [History] Isosorbide MONOnitrate (24 HR) [Imdur] 30 mg PO DAILY 365 Days tab.er.24h 10/04 [Rx] Loperamide HCl [Imodium A-D] 2 mg PO PRN PRN 10/04/17 [History] Metoprolol XL (24 HR) Succ [Toprol XL] 25 mg PO DAILY 365 Days tab.er.24h 10/04 [Rx] Multivitamin [Multivitamins] 1 each PO QAM 10/04/17 [History] Ondansetron HCl [Zofran] 4 mg PO Q6H PRN 10/04/17 [History] Phenylephrine HCl/Prometh HCl [Promethazine Vc Syrup] 5 ml PO Q6H PRN 10/04/17 [ History] Polyethylene Glycol 3350 [MiraLAX] 17 gm PO DAILY 10/04/17 [History] Polyvinyl Alcohol [Artificial Tears] 15 ml OP Q4H PRN 10/04/17 [History] Rivaroxaban [Xarelto] 15 mg PO 1700 365 Days tablet 10/04/17 [Rx] Spironolactone [Aldactone] 25 mg PO QMWF 10/04/17 [History] Allergies/Adverse Reactions: 3 Allergy/AdvReac Type Severity Reaction Status Date / Time atorvastatin [From Lipitor] Allergy Muscle Pain Verified 10/04/17 01:36 fentanyl Allergy Hallucinati Verified 10/04/17 01:36 ng steroids Allergy Hallucinati Uncoded 10/04/17 01:36 ng Date of admission: 10/04/17 04:24 Primary care physician: Brice Arzate M.D. Consults: 10/04/17 05:38 Consult to Manager Marketing Communication [CONS] Routine Reason for SW Consult: Discharge planning. - Patient Status Disposition: Transfer SNF Condition: Good Overall status at discharge: patient is progressing back to baseline - Discharge Instructions Follow Up With: Unassigned,Provider [Primary Care Provider] - 1 week - Diet and Activity Activity: resume usual activities as tolerated Diet: diabetic diet Hospital course: Ms. De is a 72 year old female who was sent to the emergency room from [facility] after it was felt she was more confused. She was evaluated in emergency room and felt to have UTI and heart failure. She was admitted to [facility] for ongoing care needs. Initial orders were written by the emergency room physician. I saw her on October 04 and performed the history physical and discharge. Her mental status had significantly improved by the time I saw her. Etiology of the altered mental status was not determined with certainty. Her vital signs remained stable and no new problems developed. The patient and her daughter felt that she was taking excessive amounts of medication and having frequent blood draws. After discussing anticoagulation they agreed to change to Xarelto from Coumadin to avoid PT/INR labs. Metoprolol was changed to Toprol-XL for adequate 24-hour coverage. Imdur was added for diagnoses of known ASHD and diastolic heart failure. I explained to the patient and daughter that there was bacteria but no clear evidence of UTI on emergency room lab work. She will not receive antibiotics at discharge. On the afternoon of October 04 I felt she was stable for discharge back to [facility] where she will follow with Dr. Arzate/Rina Beasley CNP. - Time Spent with Patient Total time spent providing and/or coordinating discharge services: - Constitutional Vitals: Temp Pulse Resp BP Pulse Ox 98.4 F 63 20 136/66 92 10/04/17 11:42 10/04/17 11:42 10/04/17 11:42 10/04/17 11:42 10/04/17 11:42
--- NOTE | 2017-10-04 15:05 | Physician Discharge Referral ---
ExtendedCare Referral Info Transfer To: [facility] Provider in Charge: Addison Provider in Charge after Transfer: PCP (Huey) - Diagnosis (1) Altered mental status Priority: Primary Status: Resolved (2) Congestive heart failure Priority: Secondary Status: Chronic (3) Atrial fibrillation Priority: Secondary Status: Chronic (4) Hypothyroidism Priority: Secondary Status: Chronic (5) Acute kidney injury Priority: Secondary Status: Acute (6) CKD (chronic kidney disease) stage 3, GFR 30-59 ml/min Priority: Secondary Status: Chronic Prognosis: Good Aware of Diagnosis: Patient, Family Aware of Prognosis: Patient, Family - Transfer Medications Prescriptions: Isosorbide MONOnitrate (24 HR) [Imdur] 30 mg PO DAILY 365 Days tab.er.24h Metoprolol XL (24 HR) Succ [Toprol XL] 25 mg PO DAILY 365 Days tab.er.24h Rivaroxaban [Xarelto] 15 mg PO 1700 365 Days tablet Home Medications: Furosemide [Lasix] 60 mg PO BID 04/06/15 [History] Levothyroxine [Synthroid] 175 mcg PO QAM 04/06/15 [History] SitaGLIPtin [Januvia] 100 mg PO QPM 04/06/15 [History] Oxygen 1 each IH AD 04/09/15 [History] Albuterol Neb [Proventil Neb] 2.5 mg IH TID PRN 05/08/15 [History] Potassium Chloride 20 meq PO DAILY PRN 05/08/15 [History] Simvastatin [Zocor] 20 mg PO QPM 05/08/15 [History] Albuterol Sulfate [Albuterol Inhaler] 1 puff IH Q4HR PRN #2 inhaler 09/06/15 [Rx ] Budesonide/Formoterol 160/4.5 [Symbicort 160/4.5] 1 puff IH BIDR #2 hfa.aer.ad 09/06/15 [Rx] Acetaminophen [Arthritis Pain Relief] 650 mg PO Q4H PRN 10/04/17 [History] Allopurinol [Zyloprim 100 MG] 100 mg PO DAILY 10/04/17 [History] Aspirin [Lo-Dose Aspirin EC] 81 mg PO QAM 10/04/17 [History] Benzocaine [Anbesol] 12 ml MM QID PRN 10/04/17 [History] Bisacodyl [Dulcolax] 10 mg RC DAILY PRN 10/04/17 [History] Buspirone HCl [Buspar] 7.5 mg PO BID PRN 10/04/17 [History] Chlorpheniramine/Dextromethorp [Coricidin Hbp Cough & Cold Tab] 1 each PO Q4H PRN 10/04/17 [History] Citalopram [CeleXA] 10 mg PO DAILY 10/04/17 [History] Diclofenac Sodium [Voltaren] 100 gm TP QID PRN 10/04/17 [History] Famotidine [Pepcid] 20 mg PO BID PRN #0 10/04/17 [Rx] HYDROcodone/Acet 5/325 mg [[place] 5-325 mg] 1 tab PO Q6H PRN 10/04/17 [History] Isosorbide MONOnitrate (24 HR) [Imdur] 30 mg PO DAILY 365 Days tab.er.24h 10/04 [Rx] Loperamide HCl [Imodium A-D] 2 mg PO PRN PRN 10/04/17 [History] Metoprolol XL (24 HR) Succ [Toprol XL] 25 mg PO DAILY 365 Days tab.er.24h 10/04 [Rx] Multivitamin [Multivitamins] 1 each PO QAM 10/04/17 [History] Ondansetron HCl [Zofran] 4 mg PO Q6H PRN 10/04/17 [History] Phenylephrine HCl/Prometh HCl [Promethazine Vc Syrup] 5 ml PO Q6H PRN 10/04/17 [ History] Polyethylene Glycol 3350 [MiraLAX] 17 gm PO DAILY 10/04/17 [History] Polyvinyl Alcohol [Artificial Tears] 15 ml OP Q4H PRN 10/04/17 [History] Rivaroxaban [Xarelto] 15 mg PO 1700 365 Days tablet 10/04/17 [Rx] Spironolactone [Aldactone] 25 mg PO QMWF 10/04/17 [History] Allergies/Adverse Reactions: 3 Allergy/AdvReac Type Severity Reaction Status Date / Time atorvastatin [From Lipitor] Allergy Muscle Pain Verified 10/04/17 01:36 fentanyl Allergy Hallucinati Verified 10/04/17 01:36 ng steroids Allergy Hallucinati Uncoded 10/04/17 01:36 ng - Respiratory Orders Oxygen / L per min (2 L/m per nasal cannula 09/03) Smoking Cessation: Smoking cessation has been advised. For more information, call the [place] Tobacco Quit Line at 4-671-EDJN-NOW. - Lab Orders Lab Orders: Other (include drug levels w/frequency) (Magnesium, bn peptide, BMP , uric acid level in 3 days. Discontinue PT/INR labs since no longer on Coumadin) - Mobility Orders Bedrest - Rehabiliation Orders Rehab Potential: Poor - Diet Orders No Concentrated Sweets CERTIFICATION: I certify that the transfer of the above named patient to an Extended Care Facility is necessary for the continuing treatment of the diagnosis listed. The above information is true and accurate reflection of patient's current condition. Confidential - Redisclosure prohibited without a patient's written consent.
[2017-10-04] MEDS ORDERED: *HR* Warfarin 3 MG TABLET PO SCH (18:00)
[2017-10-04] MEDS ORDERED: *HR* SitaGLIPtin 25 MG TABLET PO SCH (18:00)
[2017-10-05] MEDS ORDERED: Spironolactone 25 MG TABLET PO SCH (09:00)
--- NOTE | 2017-10-09 09:09 | Electrocardiograph Report ---
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
--- NOTE | 2017-10-09 09:15 | Electrocardiograph Report ---
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
== END 2017-10-04 17:30 ==
LOC: INPPIK 00:33 → EMEROOPIK 00:33 → INPPIK 05:05
PROVIDERS: ADMIT Internal Medicine; ATTEND Internal Medicine